=== PATIENT | female | born 1960 | race Caucasian/White ===

== ENCOUNTER 2019-02-19 02:02 | Emergency (ER) | payer OTHER ==
[~2019-02-19] VITALS: Ht 160 cm; Wt 64.0 kg
[2019-02-19] MEDS ORDERED: IBUPROFEN 600MG TABLET PO ONE (02:30)
[2019-02-19] MEDS ORDERED: AMLODIPINE 10MG TABLET PO ONE (02:30)
[2019-02-19 03:00] LABS: EOSINOPHILS % 4.1 % (0.0-5.0); HEMATOCRIT. 37.7 % (36.0-48.0); HEMOGLOBIN. 12.8 g/dL (12.0-16.0); LYMPHOCYTES % 34.9 % (20.0-50.0); MEAN CORPUSCULAR HEMOGLOBIN 26.5 pg (28.0-32.0); MEAN CORPUSCULAR VOLUME 78.2 fL (81.0-99.0); MONOCYTES % 7.1 % (2.0-8.0); NEUTROPHILS % 52.9 % (40.0-76.0); PLATELET 243 x1000/uL (130-400); RED BLOOD CELL COUNT 4.82 mill/uL (4.2-5.4); RED CELL DISTRIBUTION WIDTH 13.7 % (11.6-14.6)
[2019-02-19 03:05] LABS: CHLORIDE 106 mEq/L (98-107)
[2019-02-19 05:04] VITALS: BP 134/74
== END 2019-02-19 06:00 | disposition home or self-care (01) ==
LOC: ER 02:02
DX: I16.0 Hypertensive urgency (principal); R51 Headache; I10 Essential (primary) hypertension
CPT/HCPCS: 36415; 71045; 80053; 83880; 84484; 85025; 93005; 99284; Z7610